=== PATIENT | female | born 1950 | race Caucasian/White ===

== ENCOUNTER 2017-01-25 12:22 | Emergency (ER) | payer MEDICARE, OTHER ==
[2017-01-25 12:46] VITALS: BMI 26.4
[2017-01-25 12:50] VITALS: BP 123/81; PULSE 77; RESP 20; TEMP 99.2; O2SAT 99
--- NOTE | 2017-01-25 13:19 | C.PDOC ---
History Of Present Illness 66 year old patient presents to the ED complaining of persistent right shoulder pain for the past 2 weeks. Patient is s/p evaluation by her PMD for the same complaint and was given a prescription for outpatient MRI. Patient has no improvement of pain with physical therapy. The pain is next to the right scapula , radiating to the right clavicular area and below the armpit. The pain is relieved when in supine. Patient denies any associated weakness or numbness. Patient states she was unable to do the MRI due to anxiety. CO PERSIST R SHOULDER PAIN X 2 WEEKS. S/P EVAL BY PMD FOR SAME, GIVE OUTPT RX FOR MRI. NO IMPROVE W PHYS THERAPY. PAIN NEXT TO R SCAPULAR, RADIATION R CLAVICULAR AREA AND BELOW ARMPIT. RELIEVES WHEN SUPINE. NO ASSOC WEAK NUMB. PS UNABLE TO DO MRI DUE TO ANXIETY EXAM MILD DIST EXT R SHOULDER AROM WO DIFF. REPRODUC PAIN W ROM. NON TEND NO DEFORM NEURO INTACT MDM PAIN RX, ADVISED NEED FOR MRI FOR PROPER SHOULDER EVAL. Time Seen by Provider: 01/25/17 12:58 Chief Complaint (Nursing): Upper Extremity Problem/Injury History Per: Patient Onset/Duration Of Symptoms: Persistent, Other (2 weeks) Current Symptoms Are (Timing): Still Present Quality: "Pain" Severity: Mild Pain Scale Rating Of: 3 Exacerbating Factor(s): Nothing Recent travel outside of the [place]: No Past Medical History Reviewed: Historical Data, Nursing Documentation, Vital Signs Vital Signs: Last Vital Signs Temp 99.2 F 01/25/17 12:46 Pulse 77 01/25/17 12:46 Resp 20 01/25/17 12:46 BP 123/81 01/25/17 12:46 Pulse Ox 99 01/25/17 13:22 - Medical History PMH: Arthritis, Diverticulitis, GERD, Hyperlipidemia (pt denies), Kidney Stones , Osteoporosis - [facility] Procedures CYSTOSCOPY NEC (05/28/14) RETROGRADE PYELOGRAM (05/28/14) TU REMOV URETER OBSTRUCT (05/28/14) URETERAL CATHETERIZATION (05/28/14) Family History: States: Unknown Family Hx - Social History Hx Tobacco Use: Yes Hx Alcohol Use: No Hx Substance Use: No - Immunization History Hx Tetanus Toxoid Vaccination: No Hx Influenza Vaccination: Yes Hx Pneumococcal Vaccination: Yes Review Of Systems Except As Marked, All Systems Reviewed And Found Negative. Musculoskeletal: Positive for: Shoulder Pain (right), Other (pain radiating to right clavicular and below armpit region) Neurological: Negative for: Weakness, Numbness Physical Exam - Physical Exam Appears: Non-toxic, Other (mild distress) Skin: Warm, Dry Neck: Normal ROM, Supple Chest: Symmetrical Cardiovascular: Rhythm Regular Respiratory: Normal Breath Sounds, No Rales, No Rhonchi, No Wheezing Back: Normal Inspection Extremity: Normal ROM, No Pedal Edema, Capillary Refill (<2 seconds), No Deformity, No Swelling, Other (right shoulder: aromatic without difficulty. Reproducible pain with ROM. non-tender. no deformity.) Neurological/Psych: Oriented x3, Normal Motor, Normal Sensation ED Course And Treatment O2 Sat by Pulse Oximetry: 99 (room air) Pulse Ox Interpretation: Normal Medical Decision Making Medical Decision Making: Pain medication prescription was given. Patient is advised for the need of an MRI for proper shoulder evaluation. Disposition Counseled Patient/Family Regarding: Diagnosis, Need For Followup, Rx Given - Disposition Referrals: YOUR,PMD [Other] Disposition: HOME/ ROUTINE Disposition Time: 13:19 Condition: IMPROVED Prescriptions: Naproxen 500 mg PO BID #30 tab Tramadol HCl [Ultram] 50 mg PO QID #20 tab Instructions: Shoulder Pain (ED) - Clinical Impression Clinical Impression: Shoulder pain - Scribe Statement The provider has reviewed the documentation as recorded by the Erick Jara Provider Attestation: All medical record entries made by the Scribe were at my direction and personally dictated by me. I have reviewed the chart and agree that the record accurately reflects my personal performance of the history, physical exam, medical decision making, and the department course for this patient. I have also personally directed, reviewed, and agree with the discharge instructions and disposition.
== END 2017-01-25 13:29 | disposition home or self-care (01) ==
LOC: C.ER 12:22
DX: M25.511 Pain in right shoulder (principal)

== ENCOUNTER 2018-09-16 23:53 | Emergency (ER) | payer MEDICARE, OTHER ==
[2018-09-16 23:54] VITALS: BMI 26.4
[2018-09-17 00:03] VITALS: RESP 20
[2018-09-17 00:20] VITALS: O2SAT 100
[2018-09-17 01:25] LABS: BASO # 0.1 K/uL (0.0-0.2); BASO % 1.4 % (0.0-2.0); EOS # 0.4 K/uL (0.0-0.7); EOS % 3.6 % (0.0-4.0); HEMOGLOBIN 12.9 g/dL (11.0-16.0); LYMPH # 3.8 K/uL (1.0-4.3); LYMPH % 38.1 % (20.0-40.0); MEAN CELL VOLUME 87.8 fL (81.0-99.0); MEAN CORPUSCULAR HEMOGLOBIN 28.4 pg (27.0-31.0); MEAN CORPUSCULAR HGB CONC 32.3 g/dL (33.0-37.0); MEAN PLATELET VOLUME 9.2 fL (7.2-11.7); MONO # 0.8 K/uL (0.0-0.8); MONO % 8.4 % (0.0-10.0); NEUT # 4.9 K/uL (1.8-7.0); NEUT % 48.5 % (50.0-75.0); RBC 4.55 Mil/uL (3.80-5.20); RED CELL DISTRIBUTION WIDTH 14.2 % (11.5-14.5); WHITE BLOOD COUNT 10.1 K/uL (4.8-10.8)
[2018-09-17 01:37] LABS: ALB/GLOB RATIO 1.5 (1.0-2.1); ALBUMIN 4.4 g/dL (3.5-5.0); ALT/SGPT 7 U/L (9-52); AST/SGOT 25 U/L (14-36); BLOOD UREA NITROGEN 17 mg/dL (7-17); CALCIUM 9.8 mg/dl (8.6-10.4); GFR NON-AFRICAN AMERICAN > 60
[2018-09-17 02:15] VITALS: BP 125/60; PULSE 67; TEMP 98.2
--- NOTE | 2018-09-17 05:33 | C.PDOC ---
History Of Present Illness 68 year old female presents to the ED c/o mild headache and lightheadedness for the past 1 day. Patient denies fever, chills, cough, nausea, vomit, visual changes, weakness, numbness, CP, SOB, palpitations. Chief Complaint (Nursing): Abdominal Pain History Per: Patient History/Exam Limitations: no limitations Onset/Duration Of Symptoms: Days (1) Current Symptoms Are (Timing): Still Present Quality: "Pain" Recent travel outside of the [place]: No Additional History Per: Patient Past Medical History Reviewed: Historical Data, Nursing Documentation, Vital Signs Vital Signs: Last Vital Signs Temp 98.2 F 09/17/18 02:13 Pulse 67 09/17/18 02:13 Resp 20 09/17/18 02:13 BP 125/60 09/17/18 02:13 Pulse Ox 100 09/17/18 02:13 - Medical History PMH: Arthritis, Diverticulitis, GERD, Hyperlipidemia (pt denies), Kidney Stones, Osteoporosis Surgical History: No Surg Hx - [facility] Procedures CYSTOSCOPY NEC (05/28/14) RETROGRADE PYELOGRAM (05/28/14) TU REMOV URETER OBSTRUCT (05/28/14) URETERAL CATHETERIZATION (05/28/14) Family History: States: Unknown Family Hx - Social History Hx Tobacco Use: Yes Hx Alcohol Use: No Hx Substance Use: No - Immunization History Hx Tetanus Toxoid Vaccination: No Hx Influenza Vaccination: Yes Hx Pneumococcal Vaccination: No Review Of Systems Constitutional: Negative for: Fever, Chills Eyes: Negative for: Vision Change Cardiovascular: Negative for: Chest Pain, Palpitations Respiratory: Negative for: Shortness of Breath Gastrointestinal: Negative for: Nausea, Vomiting, Abdominal Pain Skin: Negative for: Rash Neurological: Positive for: Headache. Negative for: Weakness, Numbness, D izziness Physical Exam - Physical Exam Appears: Non-toxic, No Acute Distress Skin: Normal Color, Warm, Dry Head: Atraumatic, Normacephalic Eye(s): bilateral: Normal Inspection, PERRL, EOMI Neck: Normal ROM, No Midline Cervical Tenderness, Supple Chest: Symmetrical Cardiovascular: Rhythm Regular Respiratory: Normal Breath Sounds, No Rales, No Rhonchi, No Wheezing Gastrointestinal/Abdominal: Soft, No Tenderness, No Guarding, No Rebound Extremity: Normal ROM, No Tenderness, No Swelling Neurological/Psych: Oriented x3, Normal Speech, Normal Cognition Gait: Steady ED Course And Treatment - Laboratory Results Result Diagrams: 09/17/18 01:20 09/17/18 01:20 Lab Results: Troponin I < 0.0120 ng/mL (0.00-0.120) 09/17/18 01:20 Total Bilirubin 0.2 mg/dL (0.2-1.3) 09/17/18 01:20 AST 25 U/L (14-36) 09/17/18 01:20 ALT 7 U/L (9-52) L D 09/17/18 01:20 Alkaline Phosphatase 82 U/L (38-126) 09/17/18 01:20 Total Protein 7.3 g/dL (6.3-8.3) 09/17/18 01:20 Albumin 4.4 g/dL (3.5-5.0) 09/17/18 01:20 Globulin 2.9 gm/dL (2.2-3.9) 09/17/18 01:20 Albumin/Globulin Ratio 1.5 (1.0-2.1) 09/17/18 01:20 ECG: Interpreted By Me, Viewed By Me ECG Rhythm: Sinus Rhythm ECG Interpretation: Normal Rate From EC (BPM) O2 Sat by Pulse Oximetry: 100 (ON RA) Pulse Ox Interpretation: Normal - CT Scan/US CT head Other Rad Studies (CT/US): Read By Radiologist, Radiology Report Reviewed CT/US Interpretation: CT SCAN OF THE BRAIN WITHOUT IV CONTRAST. CLINICAL INDICATION: Rule out intracranial hemorrhage. Comparison: 12/03/2015. TECHNIQUE: Axial images of the brain obtained without IV contrast administration. Normal size of the ventricles and extra-axial spaces for the patient's age. Normal white matter tracts of the supratentorial brain. Normal basal ganglia and thalami. Normal brainstem. Normal cerebellum. There is no demonstrated extra-axial, intraparenchymal, or intraventricular hemorrhage. There are no findings of an acute ischemic infarction. Normal calvarium. There is no demonstrated fracture. Normal soft tissue structures. Normal visualized paranasal sinuses. IMPRESSION: Normal unenhanced CT scan of the brain. . Electronically signed on Sep 17, 2018 2:02:47 AM EST by: Alexis Mcmahon M.D., Certified by TATUM, MSK, Neuroradiology Medical Decision Making Medical Decision Making: Plan: * Labs * CT head * EKG Disposition - Disposition Referrals: Julee Lema, [Non-Staff] - Disposition: HOME/ ROUTINE Disposition Time: 02:20 Condition: GOOD Additional Instructions: The emergency medical care you received today was directed at your acute symptoms. If you were prescribed any medication, please fill it and take as directed. It may take several days for your symptoms to resolve. Return to the Emergency Department if your symptoms worsen, do not improve, or if you have any other problems. Please contact your doctor or call one of the physicians/clinics you have been referred to that are listed on the Patient Visit Information form that is included in your discharge packet. Bring any paperwork you were given at discharge with you along with any medications you are taking to your follow up visit. Our treatment cannot replace ongoing medical care by a primary care provider outside of the emergency department. Thank you for allowing the [facility] team to be part of your care today. Follow up with your primary care doctor this week for re-evaluation and further management. Instructions: Headache, Adult (DC) Forms: [facility] (French) - Clinical Impression Clinical Impression: Headache - Scribe Statement The provider has reviewed the documentation as recorded by the Scribe Phill Sweet All medical record entries made by the Scribe were at my direction and personally dictated by me. I have reviewed the chart and agree that the record accurately reflects my personal performance of the history, physical exam, medical decision making, and the department course for this patient. I have also personally directed, reviewed, and agree with the discharge instructions and disposition.
--- NOTE | 2018-09-17 08:35 | CT ---
Date of service: 09/17/2018 PROCEDURE: CT HEAD WITHOUT CONTRAST. HISTORY: r/o ICH. Headache. COMPARISON: None available. TECHNIQUE: Axial computed tomography images were obtained through the head/brain without intravenous contrast. Radiation dose: Total exam DLP = 904.29 mGy-cm. This CT exam was performed using one or more of the following dose reduction techniques: Automated exposure control, adjustment of the mA and/or kV according to patient size, and/or use of iterative reconstruction technique. FINDINGS: HEMORRHAGE: No intracranial hemorrhage. BRAIN: No mass effect or edema. Scattered focal lucencies in the subcortical and periventricular white matter suggestive for chronic microvascular ischemic change. Small hypodensity in the right basal ganglia suggestive for a lacunar infarct. Punctate right basal ganglia calcification. VENTRICLES: Unremarkable. No hydrocephalus. CALVARIUM: Unremarkable. PARANASAL SINUSES: Unremarkable as visualized. No significant inflammatory changes. MASTOID AIR CELLS: Unremarkable as visualized. No inflammatory changes. OTHER FINDINGS: None. IMPRESSION: Chronic microvascular ischemic changes. Right basal ganglia lacunar infarct. No acute intracranial abnormality. If pain persists, consider correlation with MRI. A preliminary report was generated at 09/17/[address] Alexis Mcmahon from [facility].
--- NOTE | 2018-09-19 14:54 | CARD ---
APPROVED REPORT Date of service: 09/17/2018 EKG Measurement Heart [id number] <Conclusion> Normal sinus rhythm with sinus arrhythmia Normal Electrocardiogram
== END 2018-09-17 03:05 | disposition home or self-care (01) ==
LOC: C.ER 23:53
DX: R51 Headache (principal)

== ENCOUNTER 2018-09-20 08:50 | Emergency (ER) | payer MEDICARE ==
[2018-09-20 08:50] VITALS: BMI 26.4
--- NOTE | 2018-09-20 09:44 | C.PDOC ---
History Of Present Illness 68 y/o female comes in complaining of a fever since last night, has new onset lower back pain, myalgia, and nausea. Patient was seen on 09/16/18 for headache and had a negative head CT. Patient has some lightheadedness but no UTI or URI symptoms. Has no other complaints at this time. Old records reviewed, patient noted to have normal blood pressure during prior visits. Time Seen by Provider: 09/20/18 09:22 Chief Complaint (Nursing): GI Problem History Per: Patient History/Exam Limitations: no limitations Onset/Duration Of Symptoms: Days Current Symptoms Are (Timing): Still Present Past Medical History Reviewed: Historical Data, Nursing Documentation, Vital Signs Vital Signs: Last Vital Signs Temp 101.4 F H 09/20/18 08:54 Pulse 101 H 09/20/18 08:54 Resp 20 09/20/18 08:54 BP 91/64 L 09/20/18 08:54 Pulse Ox 99 09/20/18 08:54 - Medical History PMH: Arthritis, Diverticulitis, GERD, Hyperlipidemia (pt denies), Kidney Stones, Osteoporosis - [facility] Procedures CYSTOSCOPY NEC (05/28/14) RETROGRADE PYELOGRAM (05/28/14) TU REMOV URETER OBSTRUCT (05/28/14) URETERAL CATHETERIZATION (05/28/14) Family History: States: No Known Family Hx - Social History Hx Tobacco Use: Yes Hx Alcohol Use: No Hx Substance Use: No - Immunization History Hx Tetanus Toxoid Vaccination: No Hx Influenza Vaccination: Yes Hx Pneumococcal Vaccination: No Review Of Systems Except As Marked, All Systems Reviewed And Found Negative. Constitutional: Positive for: Fever. Negative for: Chills Cardiovascular: Positive for: Light Headedness. Negative for: Chest Pain Respiratory: Negative for: Cough, Shortness of Breath Gastrointestinal: Positive for: Nausea. Negative for: Vomiting, Abdominal Pain Musculoskeletal: Positive for: Back Pain, Other (Myalgia) Neurological: Negative for: Dizziness Physical Exam - Physical Exam Appears: Non-toxic, In Acute Distress (mild) Skin: Warm, Dry Head: Atraumatic, Normacephalic Eye(s): bilateral: Other (No photophobia) Oral Mucosa: Moist Neck: Other (No meningismus) Cardiovascular: Rhythm Regular, No Murmur Respiratory: Normal Breath Sounds, No Rales, No Rhonchi, No Wheezing Gastrointestinal/Abdominal: Soft, No Tenderness Back: No CVA Tenderness, Other (Full ROM) Extremity: Bilateral: Atraumatic, Normal Color And Temperature, Normal ROM Neurological/Psych: Oriented x3, Normal Speech, Normal Motor, Normal Sensation ED Course And Treatment - Laboratory Results Result Diagrams: 09/20/18 09:58 09/20/18 09:58 ECG: Interpreted By Id ECG Rhythm: Sinus Rhythm ECG Interpretation: Normal Rate From EC O2 Sat by Pulse Oximetry: 99 (RA) Pulse Ox Interpretation: Normal - Radiology CXR: Interpreted by Me CXR Interpretation: Yes: No Acute Disease - Other Rad CXR X-Ray: Read By Radiologist Interpretation: FINDINGS: LUNGS: No active pulmonary disease. PLEURA: No significant pleural effusion identified, no pneumothorax apparent. CARDIOVASCULAR: No aortic atherosclerotic calcification present. Normal cardiac size. No pulmonary vascular congestion. OSSEOUS STRUCTURES: No significant abnormalities. VISUALIZED UPPER ABDOMEN: Normal. OTHER FINDINGS: None. IMPRESSION: No interval acute cardiopulmonary disease appreciated. Progress - Re-Evaluation Re-evaluation Note: 09/20/18 11:59 VSS IMPROVED FEELS BETTER. ENRIQUE ZEPEDA - Data Reviewed Data Reviewed: Lab, Diagnostic imaging, EKG, Old records Medical Decision Making Medical Decision Making: Plan: --VBG --EKG --Labs --Chest XR --IV fluids 1.8L --Tylenol PO --Zofran 4 mg IV --Flu swab --UA Disposition Counseled Patient/Family Regarding: Studies Performed, Diagnosis, Need For Followup, Rx Given - Disposition Referrals: YOUR,PMD [Other] Disposition: HOME/ ROUTINE Disposition Time: 12:19 Condition: IMPROVED Prescriptions: Benzonatate [Tessalon Perles] 200 mg PO TID PRN #15 sgl PRN Reason: Cough Ibuprofen [Motrin] 600 mg PO Q6 #30 tab Ondansetron ODT [Zofran ODT] 4 mg PO TID PRN #12 odt PRN Reason: Nausea/Vomiting Oseltamivir Cap [Tamiflu] 75 mg PO BID #9 cap Instructions: Flu, Adult (DC) Forms: [facility] (Slovenian), Work Excuse - Clinical Impression Clinical Impression: Influenza-like illness - Scribe Statement The provider has reviewed the documentation as recorded by the Erick Santos Provider Attestation: All medical record entries made by the Scribe were at my direction and p ersonally dictated by me. I have reviewed the chart and agree that the record accurately reflects my personal performance of the history, physical exam, medical decision making, and the department course for this patient. I have also personally directed, reviewed, and agree with the discharge instructions and disposition.
[2018-09-20] MEDS ORDERED: Sodium Chloride 0.9% 2,000 ML ONE (09:57)
[2018-09-20 10:03] LABS: VENOUS BLOOD GAS BASE EXCESS 0.5 mmol/L (0.0-2.0); VENOUS BLOOD GAS PCO2 41 mmHg (40-60); VENOUS BLOOD GAS PO2 42 mm/Hg (30-55)
[2018-09-20 10:07] LABS: BASO % 0.7 % (0.0-2.0); EOS % 0.3 % (0.0-4.0); HEMOGLOBIN 12.7 g/dL (11.0-16.0); LYMPH # 0.2 K/uL (1.0-4.3); LYMPH % 3.4 % (20.0-40.0); MEAN CELL VOLUME 87.1 fL (81.0-99.0); MEAN CORPUSCULAR HEMOGLOBIN 29.1 pg (27.0-31.0); MEAN CORPUSCULAR HGB CONC 33.4 g/dL (33.0-37.0); MEAN PLATELET VOLUME 9.5 fL (7.2-11.7); MONO # 0.5 K/uL (0.0-0.8); MONO % 6.6 % (0.0-10.0); NEUT # 6.1 K/uL (1.8-7.0); PLATELET COUNT 263 K/uL (130-400); RBC 4.36 Mil/uL (3.80-5.20); RED CELL DISTRIBUTION WIDTH 14.2 % (11.5-14.5); WHITE BLOOD COUNT 6.9 K/uL (4.8-10.8)
[2018-09-20 10:13] LABS: SQUAMOUS EPITHIAL 1 /hpf (0-5); URINE BILIRUBIN NEGATIVE (NEGATIVE); URINE BLOOD NEGATIVE (NEGATIVE); URINE CLARITY Clear (Clear); URINE COLOR Yellow (YELLOW); URINE GLUCOSE (UA) NORMAL (Normal); URINE LEUKOCYTE ESTERASE NEG Leu/uL (Negative); URINE PROTEIN NEGATIVE (NEGATIVE); URINE UROBILINOGEN NORMAL mg/dL (0.2-1.0)
[2018-09-20 10:33] LABS: ALB/GLOB RATIO 1.5 (1.0-2.1); ALBUMIN 4.5 g/dL (3.5-5.0); ALT/SGPT 11 U/L (9-52); AST/SGOT 37 U/L (14-36); BLOOD UREA NITROGEN 14 mg/dL (7-17); CALCIUM 9.6 mg/dl (8.6-10.4); GFR NON-AFRICAN AMERICAN > 60
[2018-09-20 10:41] LABS: BANDS 1 % (0-2); EOSINOPHIL 1 % (0-4); LYMPHOCYTE 3 % (20-40); MONOCYTE 5 % (0-10); NEUTROPHIL 90 % (50-75); PLATELET ESTIMATE NORMAL (NORMAL); TOTAL CELLS COUNTED 100
--- NOTE | 2018-09-20 10:49 | RAD ---
Date of service: 09/20/2018 HISTORY: FEVER COMPARISON: Portable chest 10/01/2016. FINDINGS: LUNGS: No active pulmonary disease. PLEURA: No significant pleural effusion identified, no pneumothorax apparent. CARDIOVASCULAR: No aortic atherosclerotic calcification present. Normal cardiac size. No pulmonary vascular congestion. OSSEOUS STRUCTURES: No significant abnormalities. VISUALIZED UPPER ABDOMEN: Normal. OTHER FINDINGS: None. IMPRESSION: No interval acute cardiopulmonary disease appreciated.
[2018-09-20 11:25] VITALS: BP 134/71; PULSE 106; RESP 18; TEMP 99
[2018-09-20 12:19] VITALS: O2SAT 99
--- NOTE | 2018-09-21 17:51 | CARD ---
APPROVED REPORT Date of service: 09/20/2018 EKG Measurement Heart [id number] <Conclusion> Normal sinus rhythm Possible Left atrial enlargement Nonspecific T wave abnormality Abnormal ECG
== END 2018-09-20 12:28 | disposition home or self-care (01) ==
LOC: C.ER 08:50
DX: J11.1 Influenza due to unidentified influenza virus with other respiratory manifestations (principal)
CPT/HCPCS: 71045; 80053; 81001; 82803; 82948; 85025; 87086; 87804; 93005; 96361; 96374; 99285; J2405; J7030

== ENCOUNTER 2018-11-21 13:02 | Outpatient (CLI) | payer MEDICARE | END 2018-11-21 13:03 | disposition home or self-care (01) | LOC: C.MAMMO 13:02 | DX: Z12.31 Encounter for screening mammogram for malignant neoplasm of breast (principal) ==